=== PATIENT | female | born 1965 | race Caucasian/White ===

== ENCOUNTER 2020-11-12 15:53 | Inpatient (IN) | payer OTHER ==
[~2020-11-12] VITALS: Ht 160 cm; Wt 65.3 kg
[2020-11-12 16:03] VITALS: BP 208/109
[2020-11-12 16:18] LABS: URINE BILIRUBIN NEGATIVE (Negative); URINE BLOOD 2+ (Negative); URINE CLARITY SL CLOUDY; URINE COLOR YELLOW; URINE GLUCOSE-RANDOM* NEGATIVE (Negative); URINE KETONES NEGATIVE (Negative); URINE PROTEIN (DIPSTICK) 1+ (Negative); URINE UROBILINOGEN 0.2 E.U./dl (0.2-1.0)
[2020-11-12 16:22] LABS: URINE LEUKOCYTES-REFLEX 3+ (Negative); URINE NITRITE-REFLEX POSITIVE (Negative)
[2020-11-12 16:36] LABS: SQUAMOUS 0-3 Few /LPF (0-3)
[2020-11-12 16:37] LABS: AMORPHOUS URATES Few /LPF (None Seen); CASTS None Seen /LPF (None Seen); URINE RBC 1-2 Rare /HPF (NONE SEEN); URINE WBC-REFLEX >25 Many /HPF (0-5)
[2020-11-12 19:51] LABS: ABSOLUTE NEUTROPHILS 4.5 thou/uL (1.4-8.2); BASOPHILS 0.8 % (0.0-2.0); EOSINOPHILS 1.7 % (0.0-3.0); HEMATOCRIT 33.4 % (37.0-47.0); HEMOGLOBIN 11.6 gm/dL (12.0-15.0); LYMPHOCYTES 18.7 % (24.0-44.0); MCH 30.9 pg (26.0-34.0); MCHC 34.7 g/dL (28.0-37.0); MCV 89.1 fL (80.0-100.0); MONOCYTES 12.7 % (1.0-8.0); PLATELET COUNT 168 thou/uL (150-400); POLYS 66.1 % (36.0-66.0); RBC 3.75 mil/uL (4.20-5.00); RDW 14.1 % (10.5-14.5); WBC 6.8 thou/uL (4.0-11.0)
[2020-11-12 19:59] LABS: CALCIUM 8.4 mg/dL (8.5-10.1); CREATININE 1.2 mg/dL (0.6-1.0); POTASSIUM 3.5 mmol/L (3.5-5.1)
[2020-11-12 20:05] LABS: ALBUMIN 2.9 g/dL (3.4-5.0); TOTAL BILIRUBIN 0.4 mg/dL (0.2-1.0); TOTAL PROTEIN 6.9 g/dL (6.4-8.2)
[2020-11-12 21:48] VITALS: BP 180/101
[2020-11-12 21:51] VITALS: BP 180/101
[2020-11-12 21:57] VITALS: BP 114/64
[2020-11-12] MEDS ORDERED: LISINOPRIL20 MG PO (22:57)
[2020-11-12 23:03] VITALS: BP 151/92
--- NOTE | 2020-11-13 02:24 | NUR ---
PT WAS ADNITTED TO THE UNIT WITH C/O RT FLANK PAIN AND HIGH BLOOD PRESSURE.PT IS A/O X4.PT IS UP AD JENN AND EDUCATED TO CALL FOR HELP.PT IS FROM HOME AND LIVES ALONE.IV ACCESS ON RFA WITH NS AT 100CC/HR.ADMISSION DONE AND ASSESSMENT DONE.WILL CONTINUE TO MONITOR PER POC
[2020-11-13 05:26] LABS: HEMOGLOBIN 11.8 gm/dL (12.0-15.0); MCH 31.3 pg (26.0-34.0); MCHC 34.8 g/dL (28.0-37.0); MCV 89.9 fL (80.0-100.0); RBC 3.78 mil/uL (4.20-5.00); RDW 13.6 % (10.5-14.5); WBC 4.9 thou/uL (4.0-11.0)
[2020-11-13 05:43] VITALS: BP 161/78
[2020-11-13 05:52] LABS: CALCIUM 8.4 mg/dL (8.5-10.1); CREATININE 1.1 mg/dL (0.6-1.0); POTASSIUM 3.9 mmol/L (3.5-5.1)
[2020-11-13 07:10] VITALS: BP 183/68
--- NOTE | 2020-11-13 12:40 | NUR ---
ASSUMED CARE OF PATIENT AT SHIFT CHANGE. ASSESSMENT CHARTED. MEDICATIONS ADMINISTERED PER EMAR. VSS. PATIENT IS A&OX4 AND MAKES NEEDS KNOWN. PATIENT VOICING PAIN THROUGHOUT SHIFT RELIEVED BY PRN NORCO. PATIENT AMBULATES INDEPENDENTLY WITH A STEADY GAIT. SEEN BY UROLOGY THIS DAY; MAY HAVE A STENT PLACED DEPENDING ON WHAT PROVIDER DETERMINES. PATIENT EDUCATED AND PROVIDED WITH A STRAINER TO SEE IF PATIENT IS PASSING ANY MORE STONES. PATIENT IS TOLERATING PO INTAKE WELL AND DENIES N/V/D THIS SHIFT. FLUIDS AND ABX INFUSING ON R FA W NO ISSUES. PATIENT VOICING NO FURTHER ISSUES. FREQUENT MONITORING; PATIENT MAY TRANSFER TO 4S; WILL ENDORSE TO RECIEVING NURSE ONCE TRANSFER ORDERS IN
--- NOTE | 2020-11-13 13:58 | NUR ---
PT ADMITTED RELATED TO UTI, HYDROURETER, RT FLANK PAIN. CM REVIEWED CHART AND SPOKE WITH CARE TEAM. CM MET WITH PT AT BEDSIDE THIS DAY. PT APPEARED TO BE A&O X4. CM ROLE INTRODCUED. PT INDICATED SHE LIVES IN AN APARTMENT ALONE HAVING MOVED HERE FROM [place] A MONTH AGO. SHE INDIATED THERE ARE 9 STEPS TO ENTER AND NO STEPS INSIDE. PT INDICATED SHE HAD BEEN INDEPENDENT WITH GATI AND ADLS [employer]UI[employer]NER. PT INDICATED NO DME. PT WITHOUT PCP. PT HAS CODE 48 THROUGH [place] MEDICAID RELATED TO HX OF CERVICAL CANCER. PT INDICATED SHE WASN'T AWARE THAT SHE HAD MEDICAID. PT INDICATED SHE WOULD LIKELY BE ABLE TO PAY FOR ANY PERSCRIBED MEDS UPON DC. PT IS TO HAVE UROLOGICAL PROCEDURE TOMORROW AT 8:30. ANTICPATE PT WILL DISCHARGE HOME ONCE MEDICALLY STABLE. CM EMAILED [employer] TO VISIT WITH PT REGARDING AVAL FOR ADDITIONAL FINIANCIAL ASSISTANCE.
[2020-11-13 16:35] VITALS: BP 192/111
[2020-11-13 17:04] VITALS: BP 158/96
--- NOTE | 2020-11-13 17:30 | NUR ---
Pt had been given hydralazine for high BP around 1600. Became anxious & tearful around 1635 so WASH TUB MACHINE OPERATOR was activated. Pt. was given ativan IV x1 & her BP did come down & she was much more relaxed.
[2020-11-13 17:38] VITALS: BP 158/96
--- NOTE | 2020-11-13 19:55 | NUR ---
Pt transferred from [facility] at 1515. BP was 192/92. Gave 10 mg hydralazine as ordered. Approx. 35 minutes later pt was stating she was having a hard time breathing. Had pain in her lower back. Rapid response called ordered ativan .5 mg via IV. Gave med pt relaxed and BP returned to 158/96. She understands she will be having surgery tomorrow for stint placment to pass kidney stones. Continuing to strain urine. Urine is clear & light yellow. She c/o pain at 1700 gave morphine as ordered at 1800 pt was sleeping. She did not eat dinner and understands that she is npo after midnight. Bed in low position. Call light within reach. Gave report to night nurse.
[2020-11-13 20:08] VITALS: BP 134/70
[2020-11-14] VITALS (9 sets, daily range): BP systolic 133–175; BP diastolic 55–94
--- NOTE | 2020-11-14 02:37 | NUR ---
UPON SHIFT ASSESSMENT, PT FAMILY AT BEDSIDE. PT AOX4. PT REPORTS 9/10 RIGHT BACK/FLANK PAIN. PT RECEIVING PRN PO NORCO Q4HR WITH PRN IV MORPHINE Q2HR AND PRN PO APAP Q6HR AVAILABLE. PT DENIES SOB WHILE ON ROOM AIR. PT REPORTS RESTLESSNESS INTERMITTENTLY. PT HAS PRN IV ATIVAN Q4HR AVAILABLE. PT TOLERATING PO INTAKE OF FLUIDS AND REGULAR DIET WITHOUT ISSUE, NPO AT MIDNIGHT. PT REPORTS NAUSEA INTERMITTENTLY WITHOUT EMESIS. PT RECEIVING PRN IV ZOFRAN Q4HR. PT VOIDING PER TOILET. PT AMBULATING INDEPENDENTLY WITH STEADY GAIT IN ROOM AND TO BATHROOM, RESTING IN BED OTHERWISE. FREQUENT REPOSITIONING ENCOURAGED WHILE IN BED, PT NOTED TO SHIFT INDEPENDENTLY. SENSATION INTACT, CAPILLARY REFILL LESS THAN 3SEC, PERIPHERAL PULSES PALPABLE IN ALL EXTREMITIES. PT ENCOURAGED TO NOTIFY STAFF FOR ALL NEEDS, CALL LIGHT WITHIN REACH, BED LOCKED IN LOWEST POSITON, FREQUENT MONITORING WILL CONTINUE.
--- NOTE | 2020-11-14 12:04 | NUR ---
Assessed pt at 7:00 am. No c/o pain noted. Pt remains npo until laproscopic surgery and stint placement to pass kidney stones. OR transferred pt at 745. Pt returned at 9:55 in no pain awake and alert in no s/s of distress noted. IV in Right FA running NS at 100ml/hr. Pt able to ambulate with min assist to bathroom with gaitbelt. Bowel sounds active. BP was high at 12:45 at 172/94 contacted
[2020-11-14 13:22] LABS: HEMATOCRIT 32.8 % (37.0-47.0); HEMOGLOBIN 11.1 gm/dL (12.0-15.0); MCH 30.1 pg (26.0-34.0); MCHC 33.7 g/dL (28.0-37.0); MCV 89.5 fL (80.0-100.0); RBC 3.67 mil/uL (4.20-5.00); RDW 13.9 % (10.5-14.5); WBC 3.5 thou/uL (4.0-11.0)
[2020-11-14 13:29] LABS: CALCIUM 8.4 mg/dL (8.5-10.1); CREATININE 1.2 mg/dL (0.6-1.0); MAGNESIUM 1.8 mg/dL (1.8-2.4)
--- NOTE | 2020-11-14 15:07 | O ---
[facility] [place] [address] OPERATIVE REPORT Name: MICHELLE JOSEPH Room #: 437-P ADM IN M.R.#: [id number] Admission: 11/12/20 Attend Phys: Jay Thacker MD Discharge: Date of : 65 Report #: [id number] THIS REPORT FOR: cc: KENNY - No family physician/PCP FAM - No family physician/PCP Aron Dahl MD ~ DATE OF SERVICE: 11/14/2020 PREOPERATIVE DIAGNOSIS: Right hydronephrosis. POSTOPERATIVE DIAGNOSES: Right hydronephrosis, right distal ureteral stricture, radiation cystitis. PROCEDURES: Cystoscopy, bilateral retrograde pyelograms, right stent placement. SURGEON: Aron Dahl MD ANESTHETIC: General. ESTIMATED BLOOD LOSS: None. COMPLICATIONS: None. FINDINGS: Erythematous petechiae changes of the bladder consistent with radiation cystitis. Right distal ureteral stricture to level of the vessels with proximal hydroureter, hydronephrosis. Left retrograde pyelogram was unremarkable. Right 6 x 26 stent placed. INDICATION: This is a 55-year-old female who was admitted to hospital with flank pain and infection. CT showed right hydronephrosis and she has a history of radiation for cervical cancer. It was felt best to place a stent to let her infection clear and to investigate her hydronephrosis. No stones were seen. Risks and complications explained. She wanted to proceed. DESCRIPTION OF PROCEDURE: After informed consent was obtained, the patient was taken to the operative suite where she was placed in the dorsal lithotomy position under general anesthetic. Area of the genitalia was prepped and draped in standard fashion. A 21-[place]an rigid scope was placed per urethra into bladder. Bladder was surveyed and it showed erythematous petechiae changes consistent with radiation cystitis. It was mostly at the base of the bladder. UOs were identified. Right UO was cannulated with a wire and over the wire ureteral catheter was placed. Retrograde pyelogram was done that showed narrowing of the distal ureter to about the iliac vessels with proximal hydroureter, hydronephrosis. Wire was left in place and a 6 x 26 stent was placed. She had a good curl up in the kidney and down the bladder. Left retrograde pyelogram was done that showed a fairly normal left collecting system [facility] [address] [place] [address] OPERATIVE REPORT Name: MICHELLE JOSEPH Room #: 437-P [facility] [place] ..#: [id number] Admission: 11/12/20 Attend Phys: Jay Thacker MD Discharge: Date of : 65 Report #: [id number] with sharp calices. The distal ureter seemed normal in caliber, but seemed a little bit more straight than normal where I wonder she may started to have some changes of radiation, but not actually causing obstruction. Efflux of urine came from the left side and was not felt that a stent was needed. Bladder was drained, scope withdrawn. The patient tolerated the procedure well, sent to recovery in stable condition. After infection is clear, we will probably recommend doing a formal cystoscopy with possible bladder biopsies and formal to investigate her stricture disease. <ELECTRONICALLY SIGNED> By: Aron Dahl MD 11/14/20 [id number] Aron Dahl MD /nt
[2020-11-15 03:55] VITALS: BP 178/73
--- NOTE | 2020-11-15 04:24 | NUR ---
PT AMBULATING TO BATHROOM INDEPENDENTLY AND IS TOLERATING WELL. LORTAB PROVIDING PAIN RELIEF. POSSIBLE DISCHARGE HOME 11/15. RESTING COMFORTABLY. NO NEEDS VOICED. CALL LIGHT WITHIN REACH. FREQUENT OBSERVATION.
[2020-11-15 05:43] LABS: HEMOGLOBIN 11.3 gm/dL (12.0-15.0); MCH 30.5 pg (26.0-34.0); MCHC 34.1 g/dL (28.0-37.0); MCV 89.4 fL (80.0-100.0); RBC 3.7 mil/uL (4.20-5.00); RDW 13.7 % (10.5-14.5); WBC 5.4 thou/uL (4.0-11.0)
[2020-11-15 05:54] LABS: CALCIUM 8.9 mg/dL (8.5-10.1); MAGNESIUM 1.8 mg/dL (1.8-2.4); POTASSIUM 3.8 mmol/L (3.5-5.1)
[2020-11-15 08:42] VITALS: BP 154/84
[2020-11-15] MEDS ORDERED: VESICARE10 M1 PO (09:48)
[2020-11-15] MEDS ORDERED: CEFDINIR300 MG PO (10:15)
--- NOTE | 2020-11-15 10:33 | NUR ---
ASSUMED PT CARE THIS AM. PT IS ALERT & ORIENTED X4. PT HAS IV SITE ON R AC RUNNING NS @100ML/HR AND ANTIBIOTIC. PT IS UP AD JENN. PT HAD SURGERY YESTERDAY. PT IS ROOM AIR. PT TOLERATED MEDICATION AND DIET WELL. NO C/O OF NAUSEA AND VOMITING THIS AM. PT C/O OF PAIN AND GIVEN PAIN MEDICATION PER PT REQUEST. UROLOGY CLEARED HER TO DC TODAY AND INFORMED HOSPITALIST AWAKIRIT FOR DC ORDER. PT ON THE BED WATCHING TV, BED ON THE LOWEST POSITION, SIDE RAILS UP, CALL LIGHT WITHIN REACH. WILL CONTINUE TO MONITOR. FOLLOW POC.
[2020-11-15] MEDS ORDERED: HYDROCODON-ACE1 EAC7 PO (11:20)
[2020-11-15 11:41] VITALS: BP 154/84
== END 2020-11-15 12:44 | disposition home or self-care (01) | DRG 661 ==
LOC: ER 15:53 → 4W 20:40 → EROBS 20:40 → 4W 21:58 → 4S 11-13 14:55
PROVIDERS: Emergency Medicine; Nurse Practitioner; Nurse Practitioner Family; ADMIT Internal Medicine; ATTEND Internal Medicine
PROC: 0T768DZ Dilation of Right Ureter with Intraluminal Device, Via Natural or Artificial Opening Endoscopic (ICD-10-PCS; principal; 2020-11-14)
PROC: BT141ZZ Fluoroscopy of Kidneys, Ureters and Bladder using Low Osmolar Contrast (ICD-10-PCS; principal; 2020-11-14)
DX: N13.6 Pyonephrosis (principal); K58.9 Irritable bowel syndrome, unspecified; N17.9 Acute kidney failure, unspecified; I10 Essential (primary) hypertension; F17.210 Nicotine dependence, cigarettes, uncomplicated; N04.9 Nephrotic syndrome with unspecified morphologic changes; Z85.41 Personal history of malignant neoplasm of cervix uteri; Z92.21 Personal history of antineoplastic chemotherapy; Z92.3 Personal history of irradiation; Z72.89 Other problems related to lifestyle
CPT/HCPCS: 10040; 10102; 50010; 50101; 51620; 51767; 56674; 56815; 57160; 62110; 62900; 70005

== ENCOUNTER 2020-11-28 15:11 | Emergency (ER) | payer OTHER ==
[~2020-11-28] VITALS: Ht 157.5 cm; Wt 65.8 kg
[~2020-11-28 15:11] MED LIST: CEFDINIR300 MG PO; HYDROCODON-ACE1 EAC7 PO; LISINOPRIL20 MG PO; VESICARE10 M1 PO
[2020-11-28 15:24] LABS: URINE BILIRUBIN NEGATIVE (Negative); URINE BLOOD 3+ (Negative); URINE COLOR YELLOW; URINE GLUCOSE-RANDOM* NEGATIVE (Negative); URINE KETONES NEGATIVE (Negative); URINE LEUKOCYTES-REFLEX 3+ (Negative); URINE NITRITE-REFLEX NEGATIVE (Negative); URINE PROTEIN (DIPSTICK) 1+ (Negative); URINE UROBILINOGEN 0.2 E.U./dl (0.2-1.0)
[2020-11-28 15:25] LABS: URINE CLARITY HAZY
[2020-11-28 15:47] LABS: ABSOLUTE NEUTROPHILS 4.6 thou/uL (1.4-8.2); BASOPHILS 1.1 % (0.0-2.0); EOSINOPHILS 3.7 % (0.0-3.0); HEMATOCRIT 33.6 % (37.0-47.0); HEMOGLOBIN 11.6 gm/dL (12.0-15.0); LYMPHOCYTES 22.6 % (24.0-44.0); MCH 30.4 pg (26.0-34.0); MCHC 34.6 g/dL (28.0-37.0); MCV 87.7 fL (80.0-100.0); MONOCYTES 6.4 % (1.0-8.0); PLATELET COUNT 239 thou/uL (150-400); POLYS 66.2 % (36.0-66.0); RBC 3.83 mil/uL (4.20-5.00); RDW 13.7 % (10.5-14.5)
[2020-11-28 15:49] LABS: SQUAMOUS 4-10 Moderate /LPF (0-3)
[2020-11-28 15:50] LABS: URINE RBC >20 Many /HPF (NONE SEEN); URINE WBC-REFLEX >25 Many /HPF (0-5)
[2020-11-28 16:08] LABS: CALCIUM 8.4 mg/dL (8.5-10.1); POTASSIUM 3.5 mmol/L (3.5-5.1)
[2020-11-28 16:13] LABS: ALBUMIN 3.3 g/dL (3.4-5.0); TOTAL BILIRUBIN 0.3 mg/dL (0.2-1.0); TOTAL PROTEIN 7.3 g/dL (6.4-8.2)
[2020-11-28 17:17] VITALS: BP 153/103
[2020-11-28] MEDS ORDERED: BACTRIM DS TAB1 EACH PO (17:18)
== END 2020-11-28 17:37 | disposition home or self-care (01) ==
LOC: ER 15:11
PROVIDERS: Physician Assistant
DX: N39.0 Urinary tract infection, site not specified (principal); R31.9 Hematuria, unspecified; I10 Essential (primary) hypertension; Z85.41 Personal history of malignant neoplasm of cervix uteri; Z79.891 Long term (current) use of opiate analgesic; Z79.899 Other long term (current) drug therapy; Z88.8 Allergy status to other drugs, medicaments and biological substances

== ENCOUNTER 2021-01-13 08:57 | Emergency (ER) | payer OTHER ==
[~2021-01-13] VITALS: Ht 160 cm; Wt 66.7 kg
[~2021-01-13 08:57] MED LIST changes: +BACTRIM DS TAB1 EACH PO
[2021-01-13 10:05] VITALS: BP 143/104
== END 2021-01-13 10:05 | disposition home or self-care (01) ==
LOC: ER 08:57
PROVIDERS: Emergency Medicine
DX: U07.1 COVID-19 (principal); N30.20 Other chronic cystitis without hematuria; I10 Essential (primary) hypertension; F17.200 Nicotine dependence, unspecified, uncomplicated; Z87.898 Personal history of other specified conditions; Z79.899 Other long term (current) drug therapy; Z88.8 Allergy status to other drugs, medicaments and biological substances

== ENCOUNTER 2021-03-11 10:51 | Emergency (ER) | payer BC, OTHER ==
[~2021-03-11] VITALS: Ht 157.5 cm; Wt 66.7 kg
[2021-03-11 11:30] LABS: URINE BLOOD 3+ (Negative); URINE GLUCOSE-RANDOM* NEGATIVE (Negative); URINE KETONES NEGATIVE (Negative); URINE PROTEIN (DIPSTICK) 3+ (Negative); URINE SPECIFIC GRAVITY 1.025 (1.005-1.035)
[2021-03-11 11:41] LABS: URINE LEUKOCYTES-REFLEX 2+ (Negative); URINE NITRITE-REFLEX POSITIVE (Negative)
[2021-03-11 11:42] LABS: URINE CLARITY CLOUDY; URINE COLOR RED
[2021-03-11 11:43] LABS: ABSOLUTE NEUTROPHILS 3.5 thou/uL (1.4-8.2); BASOPHILS 1.1 % (0.0-2.0); EOSINOPHILS 1.7 % (0.0-3.0); HEMATOCRIT 36.8 % (37.0-47.0); HEMOGLOBIN 12.4 gm/dL (12.0-15.0); LYMPHOCYTES 27.4 % (24.0-44.0); MCHC 33.8 g/dL (28.0-37.0); MCV 88.8 fL (80.0-100.0); MONOCYTES 9.5 % (1.0-8.0); PLATELET COUNT 196 thou/uL (150-400); POLYS 60.3 % (36.0-66.0); RBC 4.14 mil/uL (4.20-5.00); RDW 13.8 % (10.5-14.5); WBC 5.8 thou/uL (4.0-11.0)
[2021-03-11 11:44] LABS: ICTOTEST (BILI CONFIRMATORY) Negative (Negative); URINE BILIRUBIN NEGATIVE (Negative)
[2021-03-11 11:54] LABS: CASTS None Seen /LPF (None Seen); SQUAMOUS 4-10 Moderate /LPF (0-3)
[2021-03-11 11:55] LABS: CALCIUM 8.7 mg/dL (8.5-10.1); POTASSIUM 4.1 mmol/L (3.5-5.1)
[2021-03-11 11:55] LABS: URINE RBC >20 Many /HPF (NONE SEEN)
[2021-03-11 11:57] LABS: CRYSTALS None Seen /LPF (None Seen)
[2021-03-11 12:03] LABS: ALBUMIN 3.3 g/dL (3.4-5.0); TOTAL BILIRUBIN 0.3 mg/dL (0.2-1.0); TOTAL PROTEIN 7.3 g/dL (6.4-8.2)
[2021-03-11 15:21] VITALS: BP 129/84
== END 2021-03-11 15:22 | disposition home or self-care (01) ==
LOC: ER 10:51
PROVIDERS: Physician Assistant
DX: R31.9 Hematuria, unspecified (principal); I10 Essential (primary) hypertension; Z85.9 Personal history of malignant neoplasm, unspecified; Z79.891 Long term (current) use of opiate analgesic; Z79.899 Other long term (current) drug therapy; Z88.8 Allergy status to other drugs, medicaments and biological substances